=== PATIENT | female | born 1990 | race Caucasian/White ===

== ENCOUNTER 2018-07-29 15:25 | Outpatient (CLI) | payer OTHER, SELFPAY ==
[2018-07-29 15:46] LABS: Absolute Basophil Count 0.02 k/cumm (0.0-0.2); Absolute Eosinophil Count 0.04 k/cumm (0.0-0.7); Absolute Lymphocyte Count 2.56 k/cumm (1.2-3.4); Absolute Monocyte Count 0.37 k/cumm (0.11-0.7); Absolute Neutrophil Count 2.69 k/cumm (1.2-6.7); Basophils % 0.4; Eosinophils % 0.7; HCT 37.5 % (36.0-46.0); HGB 12.7 g/dL (12.0-15.5); Lymphocytes % 45.1; Mean Corp. HGB Concentration 33.9 g/dL (32.0-36.0); Mean Corpuscular Volume 91.5 fL (80-95); Mean Platelet Volume 10.3 fL (8.0-11.0); Monocytes % 6.5; Neutrophils % 47.3; Platelet Count 233 x1000/uL (130-400); RBC Distribution Width 12.5 % (11.7-14.6); White Blood Cell Count 5.68 k/cumm (4.4-10.8)
[2018-07-29 17:16] LABS: ALT 24 U/L (12-78); AST 20 U/L (15-37); Albumin 4.2 g/dL (3.4-5.0); Alkaline Phosphatase 51 U/L (46-116); Anion Gap 8.4 mmol/L (3-11); BUN 9 mg/dL (7-18); Bilirubin, Total 1.3 mg/dL (0.2-1.0); CO2 26.6 mmol/L (21.0-32.0); CREATININE 0.76 mg/dL (0.55-1.02); Calcium 8.8 mg/dL (8.5-10.1); Chloride 105 mmol/L (98-107); Glucose 86 mg/dL (70-100); Potassium 3.9 mmol/L (3.5-5.1); Sodium 140 mmol/L (136-145); TSH (W/Ref FT4) 0.79 uIU/mL (0.358-3.74); Total Protein 7.2 g/dL (6.4-8.2)
== END 2018-07-29 15:45 ==
PROVIDERS: PCP Family Medicine; Visit Provider Internal Medicine
DX: F41.9 Anxiety disorder, unspecified (principal)
CPT/HCPCS: 36415; 80053; 84443; 85025

== ENCOUNTER 2019-04-15 12:34 | Outpatient (REF) | payer OTHER, SELFPAY ==
--- NOTE | 2019-04-15 11:15 | PAPFT_PTH ---
PATIENT: Lynne Lamb LOC: [facility] U#:[id number] AGE/SX: 28/F ROOM: RE04/15/[address]: Alyssa Lee NP : 1990 BED: DIS: 04/15/2019 SPEC #: [id number] RECD: 04/15/19 17:49 STATUS: MANNIE REQ #: [id number] JOE: 04/15/19 11:[address]: Alyssa Lee NP DEPT: [facility] Cytology RECD BY: Beth Cedeno ENTERED: 04/15/19 17:49 SP TYPE: PAPFT OTHR DR: Atiya Floyd MD Tissues: 1 - CX/ENDOCX FOR PAP SMEARS Procedures: PAP THIN PREP/[facility] Screening HPV DNA PROBE Comments: [id number] (CHLAMYDIA/GC)
[2019-04-16 14:36] LABS: Chlamydia Result Negative; GC Result Negative; Specimen Description SEE COMMENTS
== END 2019-04-15 12:54 ==
LOC: LBN 12:34
PROVIDERS: PCP Family Medicine; Visit Provider Nurse Practitioner Women's Health
DX: Z11.3 Encounter for screening for infections with a predominantly sexual mode of transmission (principal); Z12.4 Encounter for screening for malignant neoplasm of cervix; Z11.51 Encounter for screening for human papillomavirus (HPV)
CPT/HCPCS: 87491; 87591; 88142; 87624

== ENCOUNTER 2020-09-11 07:42 | Outpatient (CLI) | payer OTHER, SELFPAY ==
[2020-09-13 19:28] LABS: Patient Race White; SARS-CoV-2 RNA Undetected (Undetected); SARS-CoV-2 Specimen Source Nasal
== END 2020-09-11 08:02 ==
PROVIDERS: PCP Family Medicine; Visit Provider Family Medicine
DX: Z20.828 Contact with and (suspected) exposure to other viral communicable diseases (principal)
CPT/HCPCS: U0003

== ENCOUNTER 2021-11-14 18:49 | Outpatient (REF) | payer OTHER, SELFPAY ==
[2021-11-14 19:34] LABS: ALT 35 U/L (14-59); AST 24 U/L (15-37); Albumin 4.4 g/dL (3.4-5.0); Alkaline Phosphatase 54 U/L (46-116); Anion Gap 11.6 mmol/L (3-11); BUN 16 mg/dL (7-18); Bilirubin, Total 0.8 mg/dL (0.2-1.0); CO2 24.4 mmol/L (21.0-32.0); CREATININE 0.8 mg/dL (0.55-1.02); Calcium 8.8 mg/dL (8.5-10.1); Calculated LDL 129 mg/dL (<100); Chloride 104 mmol/L (98-107); Cholesterol 192 mg/dL (<200); Glucose 89 mg/dL (74-106); HDL Cholesterol 50 mg/dL (40-60); Potassium 4.2 mmol/L (3.5-5.1); Sodium 140 mmol/L (136-145); TSH 0.75 uIU/mL (0.36-3.74); Total Protein 7.4 g/dL (6.4-8.2); Triglyceride 67 mg/dL (<150)
[2021-11-14 21:57] LABS: HCT 38.9 % (36.0-46.0); HGB 12.7 g/dL (11.2-15.7); MCH 30.5 pg (27.0-33.0); MCHC 32.6 % (32.0-36.0); MCV 93.5 fL (80-95); Platelet Count 293 10^3/uL (130-400); RBC 4.16 10^6/uL (3.93-5.22); RDW-SD 41.8 fL; WBC 5.49 10^3/uL (4.4-10.8)
== END 2021-11-14 18:50 | disposition home or self-care (01) ==
LOC: LBN 18:49
PROVIDERS: PCP Family Medicine; Visit Provider Family Medicine
DX: G43.109 Migraine with aura, not intractable, without status migrainosus (principal); H57.9 Unspecified disorder of eye and adnexa; Z13.6 Encounter for screening for cardiovascular disorders; I10 Essential (primary) hypertension
CPT/HCPCS: 80053; 80061; 85027; 84443

== ENCOUNTER 2022-02-14 19:03 | Outpatient (CLI) | payer OTHER, SELFPAY ==
--- NOTE | 2022-02-14 19:00 | RT.EKG_ITS ---
APPROVED REPORT Exam: Resting ECG Reason for Exam: Dizzy Patient Location: O HR:56 bpm ECG Measurements Heart Rate 56 AXIS AL 160 P -23 QRSd 102 QRS 50 QT 417 T 16 QTc 402 Conclusion Sinus bradycardia...rate< 60 Normal Electrocardiogram
== END 2022-02-14 19:04 | disposition home or self-care (01) ==
LOC: DI.CM 19:03
PROVIDERS: PCP Family Medicine; Visit Provider Physician Assistant
DX: R07.89 Other chest pain (principal)
CPT/HCPCS: 93010

== ENCOUNTER 2022-02-14 19:41 | Outpatient (REF) | payer OTHER, SELFPAY ==
[2022-02-14 21:02] LABS: Abs Immature Grans 0.01 10^3/uL (0.0-0.06); Absolute Basophil Count 0.03 10^3/uL (0.0-0.2); Absolute Eosinophil Count 0.13 10^3/uL (0.0-0.7); Absolute Monocyte Count 0.46 10^3/uL (0.1-0.8); Absolute Neutrophil Count 2.83 10^3/uL (1.2-6.7); Basophils % 0.5; HCT 38.7 % (36.0-46.0); HGB 12.7 g/dL (11.2-15.7); Immature Grans % 0.2; Lymphocytes % 47.3; MCH 30.2 pg (27.0-33.0); MCHC 32.8 % (32.0-36.0); MCV 91.9 fL (80-95); MPV 10.8 fL (8.0-11.0); Nucleated RBC 0 %; Platelet Count 252 10^3/uL (130-400); RBC 4.21 10^6/uL (3.93-5.22); RDW 12.1 % (11.7-14.6); RDW-SD 41.3 fL; WBC 6.56 10^3/uL (4.4-10.8)
[2022-02-14 21:12] LABS: ALT 29 U/L (14-59); AST 20 U/L (15-37); Albumin 4.4 g/dL (3.4-5.0); Alkaline Phosphatase 56 U/L (46-116); Anion Gap 10.3 mmol/L (3-11); BUN 7 mg/dL (7-18); Bilirubin, Total 0.7 mg/dL (0.2-1.0); CO2 24.7 mmol/L (21.0-32.0); CREATININE 0.7 mg/dL (0.55-1.02); Calcium 8.9 mg/dL (8.5-10.1); Chloride 104 mmol/L (98-107); Glucose 92 mg/dL (74-106); Magnesium 2.1 mg/dL (1.8-2.4); Potassium 4.1 mmol/L (3.5-5.1); Sodium 139 mmol/L (136-145); Total Protein 7.3 g/dL (6.4-8.2)
== END 2022-02-14 19:42 | disposition home or self-care (01) ==
LOC: LBN 19:41
PROVIDERS: PCP Family Medicine; Visit Provider Physician Assistant
DX: E86.0 Dehydration (principal)
CPT/HCPCS: 80053; 83735; 85025

== ENCOUNTER 2022-07-08 12:05 | Outpatient (CLI) | payer OTHER, SELFPAY ==
--- NOTE | 2022-07-08 12:00 | RT.EKG_ITS ---
APPROVED REPORT Exam: Resting ECG Reason for Exam: syncope Patient Location: O HR:57 bpm ECG Measurements Heart Rate 57 AXIS NM 166 P 41 QRSd 100 QRS 46 QT 435 T 29 QTc 424 Conclusion Sinus rhythm...normal P axis, V-rate 50- 99 Normal Electrocardiogram
== END 2022-07-08 12:06 | disposition home or self-care (01) ==
LOC: DI.CM 12:06
PROVIDERS: PCP Nurse Practitioner; Visit Provider Nurse Practitioner Family
DX: R55 Syncope and collapse (principal)
CPT/HCPCS: 93010

== ENCOUNTER 2022-07-09 03:23 | Outpatient (CLI) | payer OTHER, SELFPAY ==
[2022-07-09 16:19] LABS: Abs Immature Grans 0.01 10^3/uL (0.0-0.06); Absolute Basophil Count 0.06 10^3/uL (0.0-0.2); Absolute Eosinophil Count 0.19 10^3/uL (0.0-0.7); Absolute Monocyte Count 0.37 10^3/uL (0.1-0.8); Absolute Neutrophil Count 2.98 10^3/uL (1.2-6.7); Basophils % 0.9; Eosinophils % 2.9; HCT 36.3 % (36.0-46.0); HGB 12.4 g/dL (11.2-15.7); Immature Grans % 0.2; Lymphocytes % 44.5; MCH 30.7 pg (27.0-33.0); MCHC 34.2 % (32.0-36.0); MCV 90 fL (80-95); MPV 10.2 fL (8.0-11.0); Monocytes % 5.7; Neutrophils % 45.8; Platelet Count 240 10^3/uL (130-400); RBC 4.04 10^6/uL (3.93-5.22); RDW-SD 39.9 fL; WBC 6.51 10^3/uL (4.4-10.8)
[2022-07-09 16:44] LABS: ALT 33 U/L (14-59); AST 18 U/L (15-37); Albumin 4.1 g/dL (3.4-5.0); Alkaline Phosphatase 51 U/L (46-116); Anion Gap 9.8 mmol/L (3-11); BUN 12 mg/dL (7-18); Bilirubin, Total 0.6 mg/dL (0.2-1.0); CO2 26.2 mmol/L (21.0-32.0); CREATININE 0.8 mg/dL (0.55-1.02); Calcium 8.8 mg/dL (8.5-10.1); Chloride 104 mmol/L (98-107); Glucose 104 mg/dL (74-106); Magnesium 2.1 mg/dL (1.8-2.4); Potassium 3.6 mmol/L (3.5-5.1); Sodium 140 mmol/L (136-145); Total Protein 7.3 g/dL (6.4-8.2)
== END 2022-07-09 03:24 | disposition home or self-care (01) ==
PROVIDERS: PCP Nurse Practitioner; Visit Provider Nurse Practitioner Family
DX: R55 Syncope and collapse (principal); R42 Dizziness and giddiness
CPT/HCPCS: 36415; 80053; 83735; 85025

== ENCOUNTER 2022-09-19 03:00 | Outpatient (CLI) | payer OTHER, SELFPAY ==
[2022-09-19 16:09] LABS: Anion Gap 9.6 mmol/L (3-11); BUN 11 mg/dL (7-18); CO2 25.4 mmol/L (21.0-32.0); CREATININE 0.7 mg/dL (0.55-1.02); Calcium 9.1 mg/dL (8.5-10.1); Chloride 106 mmol/L (98-107); Estimated GFR 116.31 (mL/min/1.73m2); Glucose 95 mg/dL (74-106); Potassium 3.6 mmol/L (3.5-5.1); Sodium 141 mmol/L (136-145); TSH (W/Ref FT4) 1.23 uIU/mL (0.36-3.74)
== END 2022-09-19 03:01 | disposition home or self-care (01) ==
PROVIDERS: PCP Nurse Practitioner Family; Visit Provider Nurse Practitioner Family
DX: F33.9 Major depressive disorder, recurrent, unspecified (principal); F41.0 Panic disorder [episodic paroxysmal anxiety]; F41.1 Generalized anxiety disorder
CPT/HCPCS: 36415; 80048; 84443

== ENCOUNTER 2024-05-26 21:42 | Outpatient (REF) | payer OTHER, SELFPAY | END 2024-05-26 21:43 | disposition home or self-care (01) | LOC: LBN 21:42 | PROVIDERS: PCP Nurse Practitioner Family; Visit Provider Nurse Practitioner Family | DX: N76.0 Acute vaginitis (principal) | CPT/HCPCS: 87480; 87510; 87660 ==

== ENCOUNTER 2024-09-13 09:31 | Outpatient (REF) | payer OTHER, SELFPAY ==
--- NOTE | 2024-09-13 07:35 | PAPFT_PTH ---
PATIENT: Lynne Lamb LOC: [facility] U#:[id number] AGE/SX: 34/F ROOM: RE09/13/[address]: JOSE Chow : 1990 BED: DIS: 09/13/2024 SPEC #: [id number] RECD: 09/13/24 13:27 STATUS: MANNIE REQ #: [id number] JOE: 09/13/24 07:[address]: Shannen Feliz DEPT: [facility] Cytology RECD BY: Beth Cedeno Tissues: 1 - CX/ENDOCX FOR PAP SMEARS Procedures: PAP THIN PREP/[facility] Screening HPV DNA PROBE Comments: [id number] (HPV 16 & 18/45) (CHLAMYDIA/GC)
[2024-09-13 12:33] LABS: Bilirubin Negative (Negative); Blood Negative (Negative); Clarity Clear (Clear); Glucose Negative (Negative); Ketones Negative (Negative); Leukocyte Esterase Negative (Negative); Nitrite Negative (Negative); Specific Gravity 1.025 (1.005-1.025); Urobilinogen 0.2 mg/dL (Up to 0.2)
[2024-09-14 12:01] LABS: Chlamydia Result Negative (Negative); GC Result Negative (Negative)
== END 2024-09-13 09:32 | disposition home or self-care (01) ==
LOC: LBN 09:31
PROVIDERS: PCP Nurse Practitioner Family; Visit Provider Nurse Practitioner Family
DX: R35.0 Frequency of micturition (principal)
CPT/HCPCS: 87491; 87591; 88142; 81003; 87624

== ENCOUNTER 2024-09-29 02:19 | Outpatient (CLI) | payer OTHER, SELFPAY ==
[2024-09-29 07:55] LABS: Anion Gap 7.5 mmol/L (3-11); BUN 12 mg/dL (7-18); CO2 27.5 mmol/L (21.0-32.0); CREATININE 0.9 mg/dL (0.55-1.02); Calcium 8.9 mg/dL (8.5-10.1); Calculated LDL 97 mg/dL (<100); Chloride 106 mmol/L (98-107); Cholesterol 171 mg/dL (<200); Estimated GFR 84.97 (mL/min/1.73m2); Glucose 126 mg/dL (74-106); HDL Cholesterol 58 mg/dL (40-60); Potassium 4.1 mmol/L (3.5-5.1); Sodium 141 mmol/L (136-145); Triglyceride 84 mg/dL (<150)
[2024-09-29 07:59] LABS: Hemoglobin A1C 5.5 % (<5.7)
[2024-09-29 19:21] LABS: HBs Antibody, Quant 6.3 mIU/mL (See Note); HIV-1/2 Ag & Ab Screen Negative (Negative); Hep B Surface Ab Negative (See Note); Hepatitis B Core Antibody Negative (Negative); Hepatitis B Surface Antigen Negative (Negative)
[2024-09-29 19:45] LABS: Hepatitis C Ab w Rflx HCV PCR Negative (Negative)
== END 2024-09-29 02:20 | disposition home or self-care (01) ==
PROVIDERS: PCP Nurse Practitioner Family; Visit Provider Nurse Practitioner Family
DX: Z00.00 Encounter for general adult medical examination without abnormal findings (principal); E78.5 Hyperlipidemia, unspecified; Z11.4 Encounter for screening for human immunodeficiency virus [HIV]; Z11.59 Encounter for screening for other viral diseases
CPT/HCPCS: 36415; 80048; 80061; 86704; 86706; 86803; 87340; 87389; 83036

== ENCOUNTER 2025-09-28 01:53 | Outpatient (CLI) | payer BC, SELFPAY ==
[2025-09-28 12:43] LABS: Hemoglobin A1C 5.4 % (<5.7)
[2025-09-28 12:45] LABS: TSH (W/Ref FT4) 0.99 uIU/mL (0.55-4.78)
[2025-09-28 22:53] LABS: FSH 10.8 mIU/mL (See Note)
== END 2025-09-28 01:54 | disposition home or self-care (01) ==
LOC: LBO 01:53
PROVIDERS: PCP Nurse Practitioner Family; Visit Provider Nurse Practitioner Family
DX: N89.8 Other specified noninflammatory disorders of vagina (principal); L68.0 Hirsutism
CPT/HCPCS: 36415; 84403; 83001; 83036; 84443